=== PATIENT | female | born 1975 | race Caucasian/White ===

== ENCOUNTER 2021-08-01 20:39 | Emergency (ER) | payer BC ==
[2021-08-01 20:55] VITALS: TEMP 98.4; BMI 27.7
[2021-08-01] MEDS ORDERED: morphine CARPU-JECT 4 MG/1 ML DISP.SYRIN IVPUSH ONE ×2 (21:36)
[2021-08-01] MEDS ORDERED: morphine SULFATE 4 MG/ML VIAL ONE (21:50)
[2021-08-01] MEDS ORDERED: LIDOCAINE HCL 1%, 10 MG/ML (20ML VIAL) ONE (22:03)
[2021-08-01 22:36] LABS: EOS % 1.6 % (0-4.5); HEMATOCRIT 32.4 % (32.4-45.2); HEMOGLOBIN 10.5 GM/dL (10.7-15.3); LYMPH % 15.5 % (8-40); MCH 26.6 pg (25.7-33.7); MCHC 32.4 g/dl (32.0-36.0); MEAN CELL VOLUME 82.1 fl (80-96); MEAN PLT VOLUME 10.3 fl (7.5-11.1); MONO % 5.4 % (3.8-10.2); NEUT % 76.5 % (42.8-82.8); PLATELET COUNT 233 10^3/uL (134-434); RBC 3.94 M/mm3 (3.60-5.2); RDW 14.2 % (11.6-15.6)
[2021-08-01 22:44] LABS: INR 1.03 (0.83-1.09); PROTHROMBIN TIME (PATIENT) 11.8 SEC (9.7-13.0)
[2021-08-01 22:47] LABS: ACTIVATED PTT 30.5 SECONDS (25.2-36.5)
[2021-08-01 22:56] LABS: CALCIUM 9.4 mg/dL (8.5-10.1)
[2021-08-01 22:58] LABS: BLOOD UREA NITROGEN 15.1 mg/dL (7-18)
[2021-08-01 23:01] LABS: CREATININE 0.9 mg/dL (0.55-1.3)
[2021-08-01 23:02] LABS: BILIRUBIN,TOTAL 0.6 mg/dL (0.2-1)
[2021-08-01 23:03] LABS: TOT PROT 7.4 g/dl (6.4-8.2)
[2021-08-02] MEDS ORDERED: LACTATED RINGERS SOLUTION 1000 ML INFUS.BAG IV ONE (02:17)
[2021-08-02 02:24] VITALS: BP 114/68; PULSE 66
== END 2021-08-02 02:24 | disposition short-term general hospital (02) ==
LOC: JER 20:39
PROC: 3E033NZ Introduction of Analgesics, Hypnotics, Sedatives into Peripheral Vein, Percutaneous Approach (ICD-10-PCS; principal; 2021-08-01)
PROC: 3E033GC Introduction of Other Therapeutic Substance into Peripheral Vein, Percutaneous Approach (ICD-10-PCS; 2021-08-01)
DX: T79.A22A Traumatic compartment syndrome of left lower extremity, initial encounter (principal)
CPT/HCPCS: 36415; 73030-TC-LT-FY; 73110-TC-LT-FY; 73130-TC-LT-FY; 73562-TC-LT-FY; 73590-TC-LT-FY; 73610-TC-LT-FY; 73630-TC-LT; 75635-TC; 80053; 82550; 82553; 85025; 85610; 85730; 86850; 86900; 86901; 99285-25; C9803; Q9967; U0003; U0005